=== PATIENT | male | born 1975 | race Caucasian/White ===

== ENCOUNTER 2018-11-14 16:44 | Emergency (ER) | payer OTHER ==
[2018-11-14 17:01] VITALS: BP 130/79; PULSE 72; RESP 16; TEMP 97.9
[2018-11-14] MEDS ORDERED: DIPH,PERTUS(ACELL)TETVAC-LF 0.5 ML VIAL IM ONE (17:30)
--- NOTE | 2018-11-14 17:56 | ED ---
Wound/Laceration HPI - General Chief Complaint: Wound/Laceration Stated Complaint: [facility] - rt foot injury Time Seen by Provider: 11/14/18 17:05 Source: patient Mode of arrival: wheelchair Limitations: no limitations - History of Present Illness Initial Comments: 43-year-old male patient presents to the emergency department today for evaluation of injury to the right foot. Patient states that around 4:30 this afternoon he dropped a large piece of aluminum sheeting on his right foot. States he did go through his boot and punctured his foot. Patient states he is able to and they however it is painful to bear weight. Denies any numbness or tingling to the foot. Denies any history of injury to the foot. Denies any other injuries. Patient denies any headache, neck pain, back pain, chest pain, shortness of breath, dizziness, weakness, abdominal pain, nausea, vomiting, or difficulties with bowel movements or urination. He is unsure when his last tetanus vaccine was given. - Related Data Previous Rx's Medication Instructions Recorded Cephalexin [Keflex] 500 mg PO Q6H #28 cap 11/14/18 Allergies Allergy/AdvReac Type Severity Reaction Status Date / Time No Known Allergies Allergy Verified 11/14/18 17:00 Review of Systems ROS Statement: Those systems with pertinent positive or pertinent negative responses have been documented in the HPI. ROS Other: All systems not noted in ROS Statement are negative. Past Medical History Past Medical History: No Reported History History of Any Multi-Drug Resistant Organisms: None Reported Past Surgical History: No Surgical Hx Reported Past Psychological History: No Psychological Hx Reported Smoking Status: Current every day smoker Past Alcohol Use History: None Reported, Occasional Past Drug Use History: None Reported General Exam Limitations: no limitations General appearance: alert, in no apparent distress, other (Physical well- developed, well-nourished male patient in no acute distress. Vital signs upon presentation are temperature 97.9F, pulse 72, respirations 16, blood pressure 130/79, pulse ox 97% on room air.) Respiratory exam: Present: normal lung sounds bilaterally. Absent: respiratory distress, wheezes, rales, rhonchi, stridor Cardiovascular Exam: Present: regular rate, normal rhythm, normal heart sounds. Absent: systolic murmur, diastolic murmur, rubs, gallop, clicks Extremities exam: Present: full ROM, tenderness (Tenderness over the right fifth metatarsal), normal capillary refill, other (There is a puncture wound noted to the right lateral foot on the dorsal surface near the fifth metatarsal. There is no active bleeding. Skin is pink, warm, dry. Cap refills less than 3 seconds. Patient has full range of motion of the toes. Pedal posttibial pulses 2+ and equal bilaterally.). Absent: normal inspection, pedal edema, joint swelling, calf tenderness Neurological exam: Present: alert, oriented X3, CN II-XII intact Psychiatric exam: Present: normal affect, normal mood Skin exam: Present: warm, dry, intact, normal color. Absent: rash Course Vital Signs 11/14/18 16:58 Temperature 97.9 F Pulse Rate 72 Respiratory 16 Rate Blood Pressure 130/79 O2 Sat by Pulse 97 Oximetry Medical Decision Making - Medical Decision Making 43-year-old male patient presents to the emergency department today for evaluation of injury to the right foot. Physical examination did reveal puncture wound to the right dorsal foot near the fifth metatarsal. This was not a through and through injury. X-ray was obtained and showed no acute osseous abnormalities. Patient be started on Keflex for infection prevention. He is educated regarding wound care. Is instructed to follow-up with his primary care physician or employee health for further evaluation as soon as possible. Return parameters were discussed in detail. He verbalizes understanding and agrees with this plan. Tetanus is updated. - Radiology Data Radiology results: report reviewed, image reviewed 3 views of the right foot are obtained. Report was reviewed in its entirety. Impression by Dr. Davila shows no acute abnormality of the right foot. Disposition Clinical Impression: Puncture wound of right foot Disposition: HOME SELF-CARE Condition: Good Instructions (If sedation given, give patient instructions): Puncture Wound (ED) Additional Instructions: Keep wound clean and dry. Complete antibiotic prescription and full. Follow-up with the primary care physician for employee health as soon as possible for recheck. Return to the emergency department for any new, worsening, or concerning symptoms. Prescriptions: Cephalexin [Keflex] 500 mg PO Q6H #28 cap Is patient prescribed a controlled substance at d/c from ED?: No Referrals: None,Stated [Primary Care Provider] - 1-2 days Time of Disposition: 18:23
--- NOTE | 2018-11-14 18:02 | XR ---
EXAMINATION TYPE: XR foot complete RT DATE OF EXAM: 11/14/2018 COMPARISON: NONE HISTORY: Crush injury TECHNIQUE: 3 views FINDINGS: Metatarsals are intact. I see no fracture nor dislocation. IMPRESSION: No acute abnormality of the right foot.
== END 2018-11-14 19:18 | disposition home or self-care (01) ==
LOC: EC 16:44
DX: S91.331A Puncture wound without foreign body, right foot, initial encounter (principal); F17.200 Nicotine dependence, unspecified, uncomplicated; Z23 Encounter for immunization; W20.8XXA Other cause of strike by thrown, projected or falling object, initial encounter; Y92.69 Other specified industrial and construction area as the place of occurrence of the external cause; Y99.0 Civilian activity done for income or pay
CPT/HCPCS: 90471; 90715; 99283